=== PATIENT | female | born 1975 | race Two or more races ===

== ENCOUNTER 2025-01-02 07:14 | Emergency (ER) | payer OTHER, SELFPAY ==
--- OUTSIDE RECORDS SUMMARY | 2004-01-23 20:00 | XMS_ITS | Continuity of Care Document ---
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 Physics Professor Name Role Phone Bebe Pires MD Unavailable Unavailable Medications Medication Instructions Dosage Effective Dates (start - stop) Status Comments clotrimazole 1 % Vaginal Cream 1 APPLICATORFUL PV QD X 7 DAYS - Active Advance Directives Directive Yes / No Effective Date File Name No Information Encounters Encounter Description Practice Location Reason(s) For Visit Diagnoses Date Provider Providers Copied on Encounter zo [facility], [address] [place] [address],[address] [address], [place], [place], [id number], tel:[phone] Converted Locations No Information 4 Lexis Spence. [address] [place] [address], [id number] , [place]. tel:[phone] [facility], [address] [place] [address],Suite [facility], [place], [place], [id number], tel:[phone] [facility] Vaginitis and vulvovaginitis , unspecified 4 Z-Convert ed Provider. . [facility], [address] [place] [address],[address] [facility], [place], [place], [id number], [place] tel:[phone] [facility] Goiter, specified as simpleRoutine general medical examination at a health care facility 4 DOttavio Bebe. [address] [place] [address], [id number] , [place]. tel:[phone] Family History Family Member Type Diagnosis Age [...]
--- NOTE | ~2025-01-02 | XR_ITS ---
EXAMINATION: XR CHEST CLINICAL INFORMATION: upper resp coughing COMPARISON: None available. TECHNIQUE: AP view of the chest was obtained. FINDINGS: The cardiac, hilar, and mediastinal contours are normal. The lungs are mildly hyperaerated, however clear bilaterally. No pneumothorax or effusion. No focal osseous or soft tissue abnormality. XR/XR chest 1V IMPRESSION: Hyperaerated lungs. No active pulmonary disease. Electronically signed by: Thomas Cardenas MD 01/02/2025 08:16 AM EDT
[2025-01-02 07:16] VITALS: BP 131/72; PULSE 76; RESP 16; TEMP 36.5; O2SAT 98
--- NOTE | 2025-01-02 07:53 | ED_ITS ---
HPI - URI/Sore Throat General Chief Complaint: Upper Respiratory Symptoms Stated Complaint: Fever, coughing Time Seen by Provider: 01/02/25 07:39 Source: patient Mode of arrival: ambulatory Limitations: no limitations History of Present Illness ED Provider: DR. Reza HPI Narrative: 49-year-old female who is otherwise healthy came in for evaluation of 2 days of upper respiratory symptoms, runny nose, congestion, dry coughing, subjective fever, generalized body ache no exposure to sick contacts, no recent travel. No history of cigarette smoking. No history of pneumonia, remote history of asthma while she was child but patient grew out of. Related Data Previous Rx's ?Medication ?Instructions ?Recorded albuterol sulfate 90 mcg/actuation 2 inh inhalation Q4 -6H PRN 01/02/25 breath activated powder inhaler shortness of breath or wheezing #1 ea azithromycin 250 mg tablet See Rx Instructions PO .COM PLEX #6 01/02/25 (Zithromax Z-Romeo) tabs prednisone 20 mg tablet 20 mg PO BID #10 tabs Allergies Allergy/AdvReac Type Severity Reaction Status Date / Time ibuprofen Allergy Angioedema Verified 01/02/25 07:17 Review of Systems Review of Systems: All other systems are reviewed and are negative Constitutional: Reports as per HPI and Reports no additional constitutional complaints Eyes: Reports as per HPI and Reports no additional eye complaints Reports system reviewed and no additional complaints, except as documented Cardiovascular: Reports as per HPI and Reports no additional cardiovascular complaints Respiratory: Reports as per HPI and Reports no additional respiratory complaints Gastrointestinal: Reports as per HPI and Reports no additional gastrointestinal complaints Genitourinary: Reports no additional female genitourinary complaints Musculoskeletal: Reports no additional musculoskeletal complaints Skin/Breast: Reports system reviewed and no additional complaints, except as docu Psychiatric: Reports no additional psychiatric complaints Endocrine: Reports no additional endocrine complaints Hematologic/Lymphatic: Reports no additional hematologic/lymphatic complaints Allergic/Immunologic: Reports no additional allergic/immunologic complaints Reports system reviewed and no additional complaints, except as documented and Reports Abnormal speech present [facility] Social History Social History Advance Directives: No Advance Directives Information Provided: Yes Physical Exam Vital Signs: Vital Signs: Last Vital Signs Temp 97.7 F 01/02/25 07:16 Pulse 76 01/02/25 07:16 Resp 16 01/02/25 07:16 BP 131/72 01/02/25 07:16 Pulse Ox 98 01/02/25 07:16 O2 Del Method Room Air 01/02/25 07:16 BMI result Body Mass Index 20.0 Vital signs have been reviewed and appear to be correct. Blood pressure elevated. Heart rate normal. Respiratory rate normal. Temperature normal. Oxygen saturation normal. Appearance: Alert. Oriented X3. No acute distress. Head: Normal external exam. Normocephalic. Atraumatic. No Tellez signs noted. No raccoon eyes noted Eyes: PERRLA. EOMI. Conjunctiva and sclera normal. Eyelids normal. ENT: TM's Normal. Pharynx normal. Uvula midline. Moist mucous membranes. No trismus noted. No drooling noted. No muffled voice noted. Neck: Normal inspection. Neck supple. FROM. No adenopathy. Thyroid Normal. No meningeal signs. No neck mass noted. CVS: Normal heart rate and rhythm. Heart sound normal. No murmurs noted. Pulses normal throughout. Respiratory: No respiratory distress. Painless inspiration. Breath sounds normal. No wheezes/rales/rhonchi noted. Chest nontender. No accessory muscle usage noted or decreased air movement noted. Abdomen: Soft and nontender. Bowel sounds normal in all 4 quadrants. No distention noted. No organomegaly noted. No visible injury noted. Back: No CVA tenderness. Full range of motion noted. Skin: Skin warm and dry. Normal skin color. Normal skin turgor. No rashes/lesions/lacerations noted. Extremities: No lower extremity edema. Extremities exhibit normal range of motion. Extremities nontender. Neuro: Oriented X 3. Cranial nerve exam: II-XII are grossly intact No motor deficit. No sensory deficit. Reflexes normal. Course Reevaluation(s) Reevaluation #1: Upper respiratory infection/bronchitis start the patient on Z-Romeo/prednisone, bronchodilator. Time: 08:49 Medical Decision Making Differential Diagnosis Differential Diagnoses: The differential diagnosis associated with the presentation includes (Pneumonia, pneumothorax, pleural effusion, viral upper respiratory infection.) Admission/Observation Consideration of admission/observation: Escalation of care including admission/observation considered Lab Data MDM Lab Attestation statement: I reviewed the patient's lab results. Labs: Lab Results 01/02/25 Range/Units 07:28 COVID-19 (TARAH) Negative (Negative) COVID-19 Clin Com See Note Influenza Type A (UNA) Negative (Negative) Influenza Type B (UNA) Negative (Negative) Influenza A & B Note See Note S. pyogenes GrpA UNA Negative (Negative) Independent Interpretation I performed an independent interpretation of an: Plain X-Ray (Chest:Hyperaerated lungs. No active pulmonary disease.) Radiology Impression Discussion of test interpretation with radiology: I have reviewed the radiologist's reading. Discharge Plan Discharge Clinical Impression: Upper respiratory infection, Bronchitis Patient Disposition: Home, Self-Care Instructions: Acute Bronchitis (ED) Additional Instructions: Follow-up with the primary doctor within 2 days. Quarantine yourself until he became asymptomatic, keep social distance between you and others, frequent hand wash, wear the face mask at times. Prescriptions: New azithromycin [Zithromax Z-Romeo] 250 mg tablet See Rx Instructions .ROUTE .COMPLEX Qty: 6 0RF Rx Instructions: For 250 mg dose pack: take 500 mg today (day 1), then 250 mg for 4 days (days 2-5) albuterol sulfate 90 mcg/actuation aerosol powdr breath activated 2 inh inhalation Q4-6H PRN (Reason: shortness of breath or wheezing) Qty: 1 0RF prednisone 20 mg tablet 20 mg PO BID Qty: 10 0RF Print Language: Czech
[2025-01-02 08:00] LABS: IDNOW Serial# 16C4AD1C; Strep A Nucleic Acid Negative (Negative)
--- OUTSIDE RECORDS SUMMARY | 2025-01-02 08:01 | XMS_ITS | Clinical Summary ---
Author Organization [facility] Address [address] [place] [address] Care Team Providers Care Manager Strategic Partnerships Name Role Phone Mony Moore DO Primary Care Provider [phone] Social History Tobacco Use Types Packs/Day Years Used Date Smoking Tobacco: Never Assessed Comments Unknown Sex and Gender Information Value Date Recorded Sex Assigned at Not on file Legal Sex Female 4:27 PM EDT Gender Identity Not on file Sexual Orientation Not on file Plan of Treatment Health Maintenance Due Date Last Done Comments Hepatitis C Screening 1976 Pap Smear 1992 DTaP/Tdap/Td (1 - Tdap) 1994 Hep B (1 of 3 - 19+ 3-dose series) 09/15/1995 Mammogram/Breast Imaging 2016 COVID-19 Vaccine (2023-2 5 season) 2024 Influenza (#1) 2024 Zoster (Shingrix) (1 of 2) 2026 HPV Vaccine (No Doses Required) Completed Hep A Aged Out No longer eligi ble based on patient's age to complete this topic Hib Aged Out No longer eligi ble based on patient's age to complete this topic Meningococcal ACWY Aged Out No longer eligible based on patient's age to complete this topic Pneumococcal Aged Out No longer eligi ble based on patient's age to complete this topic Insurance [facility] (NETWORK/MH-OUT OF NETWORK) Care Teams Manager Strategic Partnerships Relationship Specialty Start Date End Date Mony Moore DO [facility], [address] [place] [id number] PCP - General Family Medicine 04/11/20
--- OUTSIDE RECORDS SUMMARY | 2025-01-02 08:01 | XMS_ITS | Clinical Summary ---
Author Organization 175 [facility] Address [address] [place] [address] Phone Care Team Providers Care Policy Issue Clerk Name Role Phone Physician, Pcp Unknown Primary Care Provider Bernie vailable Allergies Active Allergy Reactions Criticality Noted Date Comments Ibuprofen 10/22/2024 Pollen Extracts 10/22/2024 Medications multivitamin tablet Take 1 tablet by mouth 1 (one) time each day. Active cholecalciferol (VITAMIN D3) 10 mcg/mL (400 unit/mL) liquid Take by mouth 1 (one) time each day. Active SUMAtriptan (IMITREX) 50 mg tablet Take 1 tablet (50 mg total) by mouth 1 (one) time if needed for migraine (may repeat x1). May repeat dose once in 2 hours if no relief. Do not exceed 2 doses in 24 hours. 9 tablet 5 Active amitriptyline (ELAVIL) 25 mg tablet TOME 1 TABLETA POR VIA ORAL TODOS [place] AL ACOSTARSE 90 tablet 1 5 Active Encounters Date Type Department Care Team Description 11/05/2024 3:56 PM EDT - 11/05/2024 11:59 PM EDT Hospital Encounter [facility] MRI [address] [place] [address] Migraine without aura and without status migrainosus, not intractable Discharge Disposition: Home or Self Care 10/22/2024 2:00 PM EDT Consult [facility] [address] [place] [address] Olga Adamson MD Migraine without aura and without status migrainosus, not intractable (Primary Dx); Other fatigue from Last 3 Months Social History Tobacco Use Types Packs/Day Years Used Date Smoking Tobacco: Never Assessed Comments Unknown Sex and Gender Information Value Date Recorded Sex Assigned at Female 11/01/2024 10:24 PM EDT Legal Sex Female 11:31 AM EDT Gender Identity Not on file Sexual Orientation Not on file Last Filed Vital Signs Vital Sign Reading Time Taken Comments Blood Pressure 115/73 10/22/2024 2:14 PM EDT Pulse 72 10/22/2024 2:14 PM EDT Temperature 36.5 C (97.7 F) 10/22/2024 2:14 PM EDT Respiratory Rate - - Oxygen Saturation 96% 10/22/2024 2:14 PM EDT Inhaled Oxygen Concentration - - Weight 56.7 kg (125 lb) 10/22/2024 2:14 PM EDT Height 162.6 cm (5' 4 ) 10/22/2024 2:14 PM EDT Body Mass Index 21.46 10/22/2024 2:14 PM EDT Plan of Treatment Upcoming Encounters Date Type Department Care Team (Late st Contact Info) Description 01/22/2025 4:30 PM EDT Office Visit [facility] [address] [place] [address] Della Cardenas, ISAC [address] [place] [address] Health Maintenance Due Date Last Done Comments Breast Cancer Screening 1976 DTaP,Tdap,and Td Vaccines (1 - Tdap) 09/15/1995 Hepatitis B Vaccines (1 of 3 - 19+ 3-dose series) 09/15/1995 Cervical Cancer Screening: P ap Smear 1997 Depression Screening 04/11/2024 Colorectal Cancer Screening: Colonoscopy 08/02/2024 HIV Screening 08/02/2024 Hepatitis C Screening 08/02/2024 Social Influencers of Health Screening 08/02/2024 COVID-19 Vaccine ( - 2023-2 5 season) 2024 Influenza Vaccine (#1) 2024 RSV Immunization Adult Patie nts (1 - 1-dose 75+ series) 09/15/2051 HIB Vaccines Aged Out No longer eligi ble based on patient's age to complete this topic HPV Vaccines Aged Out No longer eligi ble based on patient's age to complete this topic Hepatitis A Vaccines Aged Out No long er eligible based on patient's age to complete this topic IPV Vaccines Aged Out No longer eligi ble based on patient's age to complete this topic MMR Vaccines Aged Out No longer eligi ble based on patient's age to complete this topic Meningococcal ACWY Vaccine Aged Out N o longer eligible based on patient's age to complete this topic Meningococcal B Vaccine Aged Out No l onger eligible based on patient's age to complete this topic Pneumococcal Vaccine: Pediat rics (0 to 5 Years) and At-Risk Patients (6 to 49 Years) Aged Out No longer eligible b ased on patient's age to complete this topic RSV Immunization Patients Un rach 20 months Aged Out No longer eligible b ased on patient's age to complete this topic Varicella Vaccines Aged Out No longer eligible based on patient's age to complete this topic Procedures Procedure Name Priority Date/Time Associated Diagnosis Comments MR BRAIN WO AND W CONTRAST Routine 11/05/2024 5:10 PM EDT Migraine without aura and without status migrainosus, not intractable CBC WITH AUTO DIFFERENTIAL Routine 10/22/2024 2:59 PM EDT Migraine without aura and without status migrainosus, not intractable THYROID STIMULATING HORMONE WITH REFLEX TO FREE T4 AND FREE T3 Routine 10/22/2024 2:59 PM EDT Migraine without aura and without status migrainosus, not intractable Other fatigue HEPATIC FUNCTION PANEL Routine 10/22/2024 2:59 PM EDT Migraine without aura and without status migrainosus, not intractable CBC AND DIFFERENTIAL Routine 10/22/2024 2:59 PM EDT Migraine without aura and without status migrainosus, not intractable BORRELIA BURGDORFERI ANTIBODY Routine 10/22/2024 2:59 PM EDT Migraine without aura and without status migrainosus, not intractable BUN Routine 10/22/2024 2:59 PM EDT Migraine without aura and without status migrainosus, not intractable CREATININE, SERUM Routine 10/22/2024 2:5 9 PM EDT Migraine without aura and without status migrainosus, not intractable VITAMIN D 25 HYDROXY Routine 10/22/2024 2:59 PM EDT Migraine without aura and without status migrainosus, not intractable VITAMIN B12 Routine 10/22/2024 2:59 PM EDT Migraine without aura and without status migrainosus, not intractable from Last 3 Months Results * MR Brain wo and w Contrast (11/05/2024 5:10 PM EDT) Anatomical Region Laterality Modality Head and Neck Magnetic Resonan ce 11/06/2024 5:53 PM EDT Impressions 11/06/2024 5:56 PM EDT Normal brain MRI without and with contrast -------- FINAL REPORT -------- Dictated By: JULIETH HILARIO Dictated Date: 11/06/2024 17:53 ET Assigned Physician: JULIETH HILARIO Reviewed and Electronically Signed By: JULIETH HILARIO Signed Date: 11/06/2024 17:56 ET Workstation ID: [id number] Transcribed By: Self Edit Transcribed Date: 11/06/2024 17:53 ET Narrative 11/06/2024 5:56 PM EDT PROCEDURE: Brain MRI INDICATION: Headache TECHNIQUE: Multiplanar, multisequence MRI of the brain without and with contrast. 11 mL Dotarem injected intravenously without complication from a 15 mL vial with the remainder discarded. COMPARISON: No priors available. FINDINGS: No acute infarct, mass effect, or intracranial hemorrhage. Brain parenchyma is normal in signal. No abnormal intracranial enhancement or susceptibility artifact. Sella and foramen magnum are normal. Pituitary gland is within normal limits. Ventricles, sulci, and cisterns are normal in size and configuration. No hydrocephalus. Major intracranial arterial flow voids are normal. Major dural venous sinuses enhance normally with contrast. Sinuses and mastoid air cells are clear. Orbits and extracranial soft tissues are normal. Calvarium is normal. Procedure Note Julieth Hilario MD - 11/06/2024 PROCEDURE: Brain MRI INDICATION: Headache TECHNIQUE: Multiplanar, multisequence MRI of the brain without and withcontrast. 11 mL Dotarem injected intravenously without complication froma 15 mL vial with the remainder discarded. COMPARISON: No priors available. FINDINGS: No acute infarct, mass effect, or intracranial hemorrhage. Brain parenchyma is normal in signal. No abnormal intracranial enhancement or susceptibility artifact. Sella and foramen magnum are normal. Pituitary gland is within normallimits. Ventricles, sulci, and cisterns are normal in size and configuration. Nohydrocephalus. Major intracranial arterial flow voids are normal. Major dural venoussinuses enhance normally with contrast. Sinuses and mastoid air cells are clear. Orbits and extracranial soft tissues are normal. Calvarium is normal. IMPRESSION: Normal brain MRI without and with contrast -------- FINAL REPORT -------- Dictated By: JULIETH HILARIO Dictated Date: 11/06/2024 17:53 ET Assigned Physician: JULIETH HILARIO Reviewed and Electronically Signed By: JULIETH HILARIO Signed Date: 11/06/2024 17:56 ET Workstation ID: [id number] Transcribed By: Self Edit Transcribed Date: 11/06/2024 17:53 ET us Olga Adamson MD [facility] MRI PROCEDURES Final Result * Thyroid stimulating hormone with reflex to free t4 and free t3 (10/22/2024 2:59 PM EDT) TSH 0.58 0.40 - 4.00 mcIU/mL LAB CHEMISTRY METHOD 10/22/2024 7:22 PM EDT [facility] Blood Venous blood specimen / Unknown Venipuncture / Unknown 10/22/2024 2:59 PM EDT 10/22/2024 2:59 PM EDT us Olga Adamson MD LAB BLOOD ORDERABLES Fin al Result [facility] [address] [place] [address], * CBC auto differential (10/22/2024 2:59 PM EDT) WBC 6.2 4.8 - 10.8 K/mcL LAB HEMETOLOGY METHOD 10/22/2024 6:20 PM EDT [facility] RBC 4.10 3.80 - 4.80 M/mcL LAB HEMETOLOGY METHOD 10/22/2024 6:20 PM EDT [facility] Hemoglobin 12.8 11.5 - 16.0 g/dL LAB HEMETOLOGY METHOD 10/22/2024 6:20 PM EDT [facility] Hematocrit 39.8 35.0 - 47.0 % LAB HEMETOLOGY METHOD 10/22/2024 6:20 PM EDT [facility] MCV 96.4 79.0 - 98.0 FL LAB HEMETOLOGY METHOD 10/22/2024 6:20 PM EDT [facility] MCH 31.0 27.0 - 32.0 pcg LAB HEMETOLOGY METHOD 10/22/2024 6:20 PM EDT [facility] MCHC 32.2 32.0 - 37.0 g/dL LAB HEMETOLOGY METHOD 10/22/2024 6:20 PM EDT [facility] RDW 12.1 11.0 - 15.0 % LAB HEMETOLOGY METHOD 10/22/2024 6:20 PM EDT [facility] Platelets 333 130 - 400 K/mcL LAB HEMETOLOGY METHOD 10/22/2024 6:20 PM EDT [facility] MPV 10.4 7.0 - 11.0 FL LAB HEMETOLOGY METHOD 10/22/2024 6:20 PM EDT [facility] NRBC 0.0 <1.0 % LAB HEMETOLOGY METHOD 10/22/2024 6:20 PM EDT [facility] NRBC Absolute 0.00 <0.10 K/mcL LAB HEMETOLOGY METHOD 10/22/2024 6:20 PM EDT [facility] Neutrophils Relative 42.1 % LAB HEMETOLOGY METHOD 10/22/2024 6:20 PM EDT [facility] Lymphocytes Relative 45.3 % LAB HEMETOLOGY METHOD 10/22/2024 6:20 PM EDT [facility] Monocytes Relative 8.2 % LAB HEMETOLOGY METHOD 10/22/2024 6:20 PM EDT [facility] Eosinophils Relative 3.2 % LAB HEMETOLOGY METHOD 10/22/2024 6:20 PM EDT [facility] Basophils Relative 1.0 % LAB HEMETOLOGY METHOD 10/22/2024 6:20 PM EDT [facility] Immature Granulocytes Relative 0.2 % LAB HEMETOLOGY METHOD 10/22/2024 6:20 PM EDT [facility] Neutrophils Absolute 2.63 1.50 - 7.00 K/mcL LAB HEMETOLOGY METHOD 10/22/2024 6:20 PM EDT [facility] Lymphocytes Absolute 2.82 1.00 - 5.00 K/mcL LAB HEMETOLOGY METHOD 10/22/2024 6:20 PM EDT [facility] Monocytes Absolute 0.51 0.20 - 1.00 K/mcL LAB HEMETOLOGY METHOD 10/22/2024 6:20 PM EDT [facility] Eosinophils Absolute 0.20 0.00 - 0.50 K/mcL LAB HEMETOLOGY METHOD 10/22/2024 6:20 PM EDT [facility] Basophils Absolute 0.06 0.00 - 0.20 K/mcL LAB HEMETOLOGY METHOD 10/22/2024 6:20 PM EDT [facility] Immature Granulocytes Absolute 0.01 0.00 - 0.03 K/mcL LAB HEMETOLOGY METHOD 10/22/2024 6:20 PM EDT [facility] Blood Venous blood specimen / Unknown Venipuncture / Unknown 10/22/2024 2:59 PM EDT 10/22/2024 2:59 PM EDT us Olga Adamson MD LAB BLOOD ORDERABLES Fin al Result Performing Organization Address [facility] de Phone Number [facility] [address] [place] [address], * Borrelia burgdorferi antibody (10/22/2024 2:59 PM EDT) [facility] Lyme Ab Negative Negative LAB CHEMISTRY METHOD 10/23/2024 10:02 AM EDT [facility] Comment: No laboratory evidence of infection with B. burgdorferi (Lyme disease). Negative results may occur in patients recently infected (<=14 days) with B. burgdorferi. If recent infection is suspected, repeat testing on a new sample collected in 7- 14 days is recommended. Blood Venous blood specimen / Unknown Venipuncture / Unknown 10/22/2024 2:59 PM EDT 10/22/2024 2:59 PM EDT us Olga Adamson MD LAB BLOOD ORDERABLES Fin al Result Performing Organization Address [facility]/ZIP Co de Phone Number [facility] [address] [place] [address], [place] [phone] * Creatinine (10/22/2024 2:59 PM EDT) [facility] Creatinine 0.70 0.50 - 1.10 mg/dL LAB CHEMISTRY METHOD 10/22/2024 6:47 PM EDT [facility] eGFR 107 >=60 mL/min/1. 73m2 LAB CHEMISTRY METHOD 10/22/2024 6:47 PM EDT [facility] Comment:Calculation based on the Chronic Kidney Disease Epidemiology Collaboration (CKD-EPI) equation refit without adjustment for race. Blood Venous blood specimen / Unknown Venipuncture / Unknown 10/22/2024 2:59 PM EDT 10/22/2024 2:59 PM EDT us Olga Adamson MD LAB BLOOD ORDERABLES Fin al Result Performing Organization Address [facility]/ZIP Co de Phone Number [facility] [address] [place] [address], [place] [phone] * Vitamin D 25 hydroxy (10/22/2024 2:59 PM EDT) Vit D, 25-Hydroxy 57.3 30.0 - 80.0 ng/mL LAB CHEMISTRY METHOD 10/22/2024 7:22 PM EDT [facility] Blood Venous blood specimen / Unknown Venipuncture / Unknown 10/22/2024 2:59 PM EDT 10/22/2024 2:59 PM EDT us Olga Adamson MD LAB BLOOD ORDERABLES Fin al Result Performing Organization Address [facility]/ZIP Co de Phone Number [facility] [address] [place] [address], [place] [phone] * BUN (10/22/2024 2:59 PM EDT) BUN 12 5 - 25 mg/dL LAB CHEMISTRY METHOD 10/22/2024 7:14 PM EDT [facility] Blood Venous blood specimen / Unknown Venipuncture / Unknown 10/22/2024 2:59 PM EDT 10/22/2024 2:59 PM EDT us Olga Adamson MD LAB BLOOD ORDERABLES Fin al Result Performing Organization Address [facility]/ZIP Co de Phone Number [facility] [address] [place] [address], * Vitamin B12 (10/22/2024 2:59 PM EDT) [facility] Vitamin B-12 710 250 - 900 pcg/mL LAB CHEMISTRY METHOD 10/22/2024 7:14 PM EDT [facility] Blood Venous blood specimen / Unknown Venipuncture / Unknown 10/22/2024 2:59 PM EDT 10/22/2024 2:59 PM EDT Olga Adamson MD LAB BLOOD ORDERABLES Fin al Result Performing Organization Address [facility]/ZIP Co de Phone Number [facility] [address] [place] [address], * Hepatic function panel (10/22/2024 2:59 PM EDT) [facility] Total Protein 7.2 6.0 - 8.0 g/dL LAB CHEMISTRY METHOD 10/22/2024 7:14 PM EDT [facility] Albumin 3.7 3.2 - 5.0 g/dL LAB CHEMISTRY METHOD 10/22/2024 7:14 PM EDT [facility] Total Bilirubin 0.4 0.0 - 1.4 mg/dL LAB CHEMISTRY METHOD 10/22/2024 7:14 PM EDT [facility] Bilirubin, Direct <0.1 0.0 - 0.3 mg/dL LAB CHEMISTRY METHOD 10/22/2024 7:14 PM EDT [facility] Bilirubin, Indirect LAB CHEMISTRY METHOD 10/22/2024 7:14 PM EDT [facility] Comment:Unable to calculate Indirect Bilirubin. ALT (SGPT) 29 10 - 60 unit/L LAB CHEMISTRY METHOD 10/22/2024 7:14 PM EDT [facility] AST (SGOT) 20 10 - 42 unit/L LAB CHEMISTRY METHOD 10/22/2024 7:14 PM EDT [facility] Alkaline Phosphatase 105 42 - 121 unit/L LAB CHEMISTRY METHOD 10/22/2024 7:14 PM EDT [facility] Blood Venous blood specimen / Unknown Venipuncture / Unknown 10/22/2024 2:59 PM EDT 10/22/2024 2:59 PM EDT us Olga Adamson MD LAB BLOOD ORDERABLES Fin al Result [facility] [address] [place] [address], [place] [phone] from Last 3 Months Insurance [id number] Care Teams Policy Issue Clerk Relationship Specialty Start Date End Date Physician, Pcp Unknown PCP - General 10/22/24
[2025-01-02 08:07] LABS: COVID-19 Test Negative (Negative); IDNOW Serial# 6674DD1D
[2025-01-02 08:08] LABS: IDNOW Serial# 08D9AD1C; Influenza B2 Negative (Negative)
[2025-01-02 09:03] VITALS: BP 131/72; PULSE 76; RESP 16; TEMP 36.5; O2SAT 98
== END 2025-01-02 09:04 | disposition home or self-care (01) ==
PROVIDERS: Emergency Provider Emergency Medicine
DX: J06.9 Acute upper respiratory infection, unspecified (principal); J40 Bronchitis, not specified as acute or chronic; R50.9 Fever, unspecified; R05.9 Cough, unspecified; M79.10 Myalgia, unspecified site; Z11.52 Encounter for screening for COVID-19; Z79.899 Other long term (current) drug therapy
CPT/HCPCS: 71045; 87502; 87635; 87651; 99282; 99283

== ENCOUNTER → 2025-01-02 08:05 | Outpatient (BNV) | payer OTHER, SELFPAY | PROVIDERS: Emergency Provider Emergency Medicine; Visit Provider Radiology Diagnostic Radiology | DX: J98.4 Other disorders of lung (principal) | CPT/HCPCS: 71045 ==

== ENCOUNTER 2025-01-24 16:10 | Outpatient (AMB) | payer OTHER, SELFPAY ==
--- OUTSIDE RECORDS SUMMARY | 2004-01-23 20:00 | XMS_ITS | Continuity of Care Document ---
Author Organization [facility] Address [address] [address],[address] [place] [address] Phone Care Team Providers Care Link Cutter Name Role Phone Bebe Pires MD Unavailable Unavailable Medications Medication Instructions Dosage Effective Dates (start - stop) Status Comments clotrimazole 1 % Vaginal Cream 1 APPLICATORFUL PV QD X 7 DAYS - Active Advance Directives Directive Yes / No Effective Date File Name No Information Encounters Encounter Description Practice Location Reason(s) For Visit Diagnoses Date Provider Providers Copied on Encounter zo [facility], [address] [place] [address],[address] [address], [place], [place], [id number], tel:[phone] Converted Locations No Information 4 Lexis Spence. [address] [place] [address], [id number] , [place]. tel:[phone] [facility], [address] [place] [address],Suite [facility], [place], [place], [id number], tel:[phone] [facility] Vaginitis and vulvovaginitis , unspecified 4 Z-Convert ed Provider. . [facility], [address] [place] [address],Suite [facility], [place], [place], [id number], [place] tel:[phone] 22 [facility] Goiter, specified as simpleRoutine general medical examination at a health care facility 4 DOttavio Bebe. [address] [place] [address], [id number] , [place]. tel:[phone] Family History Family Member Type Diagnosis Age [...]
--- OUTSIDE RECORDS SUMMARY | 2025-01-22 16:30 | XMS_ITS | Encounter Summary ---
Author Organization [facility] Address [address] [place] [address] Care Team Providers Care Insurance Rater Name Role Phone Physician, Pcp Unknown Primary Care Provider Bernie vailable Encounter Details Date Type Department Care Team ([facility] st Contact Info) Description 01/22/2025 4:30 PM EDT Office Visit [facility] [address] [place] [id number] Della Cardenas PA [address] [place] [address] Social History Tobacco Use Types Packs/Day Years Used Date Smoking Tobacco: Never Assessed Comments Unknown Sex and Gender Information Value Date Recorded Sex Assigned at Female 11/01/2024 10:24 PM EDT Legal Sex Female 11:31 AM EDT Gender Identity Not on file Sexual Orientation Not on file documented as of this encounter Last Filed Vital Signs Vital Sign Reading Time Taken Comments Blood Pressure 112/73 01/22/2025 4:23 PM EDT Pulse 92 01/22/2025 4:23 PM EDT Temperature - - Respiratory Rate - - Oxygen Saturation 98% 01/22/2025 4:23 PM EDT Inhaled Oxygen Concentration - - Weight 56.7 kg (125 lb) 01/22/2025 4:23 PM EDT Height - - Body Mass Index 21.46 10/22/2024 2:14 PM EDT documented in this encounter Ordered Prescriptions Prescription Sig Dispense Quantity Refills Last Filled Start Date End Date magnesium oxide (MAG-OX) 400 mg magnesium tablet Take 1 tablet (400 mg total) by mouth 1 (one) time each day. 30 tablet 5 01/22/2025 riboflavin (VITAMIN B2) 400 mg tablet Take 1 tablet (400 mg total) by mouth 1 (one) time each day. 30 tablet 5 01/22/2025 documented in this encounter Plan of Treatment Upcoming Encounters Date Type Department Care Team (Late st Contact Info) Description 07/22/2025 4:00 PM EDT Office Visit [facility] [address] [place] [address] Olga Adamson MD [address] [place] [address] documented as of this encounter Visit Diagnoses Not on filedocumented in this encounter Historical Medications * This list may reflect changes made after this encounter. albuterol HFA (PROAIR HFA ; PROVENTIL HFA ; VENTOLIN HFA) 90 mcg/actuation inhaler Inhale 2 puffs by mouth if needed. 01/04/2025 added in this encounter Care Teams Insurance Rater Relationship Specialty Start Date End Date Physician, Pcp Unknown PCP - General 10/22/24 documented as of this encounter
--- NOTE | 2025-01-24 16:14 | MHC.PC.OV ---
Vital Signs 01/24/25 16:20 Height 5 ft 3.39 in Weight 131 lb 2 oz BMI 22.9 BP 131/79 Blood Pressure Location Lt brachial Position Sitting Respiration 16 Pulse 89 Pulse Source Pulse Oximeter Temp 98.2 F Temp Source Oral Pulse Oximetry (%) 95 Oxygen Delivery Method Room Air Intake Visit Reasons: NEW PATIENT- Formerly [facility] Care Paper Inserter Required: No Accompanied by: Self / Same As Patient Allergies ibuprofen Allergy (Verified 01/24/25 16:15) Angioedema Tobacco use date assessed: 01/24/25 Dental Screening Dental Screen Date: 01/24/25 Did you have a dental visit in the last 12 months?: Yes Did you have a dental problem in the last 6 months where you did not have access to dental care?: No Was dental information given to patient?: Patient has dentist HPI HPI Comments History of Present Illness Details Consent Patient was informed and verbally consented to the use of an ambient scribe for clinic note documentation during this visit. History of Present Illness The patient is a 49-year-old female presenting with upper respiratory symptoms and persistent cough. Upper Respiratory Infection: The patient experienced two days of upper respiratory symptoms including rhinorrhea, nasal congestion, dry cough, subjective fever, and generalized myalgia. She reported no exposure to sick contacts or recent travel history. The patient was diagnosed with an upper respiratory infection during an emergency department visit and was prescribed azithromycin, prednisone, and a bronchodilator. Bronchitis: During the emergency department visit, the patient was also diagnosed with bronchitis, presenting with symptoms of a persistent dry cough and congestion. She has been on a treatment regimen including azithromycin, prednisone, and a bronchodilator. The patient reports persistent coughing, particularly at night, which has been ongoing since the initial symptoms began. Mild Persistent Asthma: The patient has a history of asthma from childhood, which was considered resolved. She experiences occasional coughing and chest pain, notably exacerbated at night. The patient uses albuterol as needed, though no recent exacerbations prompted increased use. The discussion revealed that the asthma may reactivate, influenced by environmental triggers such as allergens or seasonal changes. Menstrual Irregularity: The patient reports irregular menstruation with her last periods occurring in April and September of this year. She noted heavy bleeding on occasion, with this pattern persisting for approximately three years. She denies further concerns regarding her menstrual cycles and reports no significant related symptoms such as fatigue aside from occasional tiredness. Surgical History: - The patient has no history of prior surgeries. Medications: - Azithromycin (Z-Romeo) for upper respiratory infection - Prednisone for bronchitis - Bronchodilator for bronchitis - Albuterol as a rescue inhaler - Fluticasone for nasal congestion Social History: - Denies history of cigarette smoking - Reports that she does not consume alcohol - Engages in no illicit drug use - Is sexually active Review of Systems - Respiratory: Reports persistent rhinorrhea, nasal congestion, dry cough. - Cardiovascular: Reports chest pain associated with coughing. - Reproductive: Reports irregular menstruation with heavy periods at times. 10-point ROS reviewed and negative except as noted in HPI Past Medical History - Past history of asthma in childhood Health Maintenance - Patient has completed cervical cancer screening and mammography within the last year with normal results. - Denies previous colonoscopy; discussed Cologuard as an alternative. Physical Exam General: Well-appearing, in no acute distress. Vital signs: Within normal limits. HEENT: Normocephalic, atraumatic. PERRLA, EOMI. Conjunctiva clear, sclera anicteric. Oropharynx clear, mucous membranes moist. TMs intact bilaterally. Congested nose, more at night than during the day. Neck: Supple, no lymphadenopathy, no thyromegaly, no JVD or carotid bruits. Cardiovascular: RRR, normal S1/S2, no murmurs, rubs, or gallops. Peripheral pulses 2+ and symmetric. No edema. Respiratory: Lungs clear to auscultation bilaterally, no wheezes, rales, or rhonchi. Normal effort. Patient reports persistent cough, especially at night, and occasional chest pain. Abdomen: Soft, non-tender, non-distended. Normoactive bowel sounds. No hepatosplenomegaly, no masses. MSK: Full range of motion, no joint swelling or deformity. Normal gait. Skin: Warm, dry, intact. No rashes, lesions, or pallor. Neuro: Alert and oriented x3. Cranial nerves II-XII intact. Strength 5/5 throughout. Sensation intact. Reflexes 2+ symmetric. Normal coordination and gait. Psych: Appropriate mood and affect. Normal judgment and insight. Reports occasional tiredness during the day and snoring at night. Plan 1. Upper Respiratory Infection - status post antibiotic and steroid p.o. patient responded well 2. Bronchitis - same as above 3. Mild Persistent Asthma - Initiate inhaled corticosteroid (fluticasone) as maintenance therapy. -use fluticasone nasal spray for postnasal drip - Continue using albuterol as a rescue inhaler for acute symptoms. - Educate patient on asthma triggers and management plan. 4. Menstrual Irregularity - Monitor menstrual cycle and symptomatic patterns. - Discuss further gynecological evaluation if irregularities persist or worsen. Discussion Notes I discussed the management of upper respiratory infection and bronchitis, emphasizing the continuation of prescribed medications and monitoring for symptom improvement. I advised the patient on asthma management, including maintenance inhaler use and identification of potential asthma triggers. Additionally, I reviewed her respiratory and other symptoms, while considering her menstrual irregularities, advising ongoing monitoring and further evaluation if needed. We discussed various health maintenance measures, including the option of a Cologuard test for colorectal cancer screening, given her history of lacking a colonoscopy. Patient Instructions - Continue taking all prescribed medications as directed. - Use the albuterol inhaler for any acute respiratory symptoms. - Monitor and log menstrual cycles, noting any significant changes. - Look out for worsening symptoms or lack of improvement and notify the clinic if needed. - Return for follow-up in two weeks for evaluation of overall progress. Medical Decision Making The decision to continue current medication for the respiratory conditions was influenced by the initial response and the established treatment efficacy. The initiation of a maintenance inhaler was based on the recurrent nature of asthma symptoms and preventative needs, aiming to improve respiratory status and manage asthma triggers. Menstrual irregularities were acknowledged, with a plan to observe and reassess the symptom trajectory if abnormal patterns persist. Diagnostic evaluation methods were discussed, offering non-invasive options, like Cologuard, to the patient to address the overdue screening without requiring immediate invasive procedures, aligning with best practice preventative care recommendations. Total time spent caring for the patient today was 30 minutes. This includes time spent before the visit reviewing the chart, time spent documenting, and time spent reviewing laboratory results, diagnostic imaging, medications, performing a medically necessary evaluation, counseling on diagnoses, care coordination. [facility] Medical History (Updated 01/24/25 @ 16:40 by Rey Singh MD) Mild persistent asthma Family History (Updated 01/24/25 @ 16:24 by Jaquan Tiwari MA) Father Diabetes High blood pressure Mother High blood pressure Social History Housing: House Patient Tobacco Use Status: Never used Tobacco service: No Current occupational status: employed Cognitive needs: No Hearing needs: No Vision needs: Yes (rx glasses) Questionnaire PHQ-9 Over the last 2 weeks, how often have you been bothered by any of the following problems? 1. Little interest or pleasure in doing things: not at all 2. Feeling down, depressed, or hopeless: not at all 3. Trouble falling or staying asleep, or sleeping too much: not at all 4. Feeling tired or having little energy: several days 5. Poor appetite or overeating: not at all 6. Feeling bad about yourself - or that you are a failure or have let yourself or your family down: not at all 7. Trouble concentrating on things, such as reading the newspaper or watching television: not at all 8. Moving or speaking so slowly that other people could have noticed. Or the opposite - being so fidgety or restless that you have been moving around a lot more than usual: not at all 9. Thoughts that you would be better off or of hurting yourself in some way: not at all Total score: 1 Source: Developed by Drs. Dylon Baron, Annie Regan, Forrest Diaz and colleagues, with an educational kevin from [employer]. Thrive Questionnaire Date Thrive assessed: 01/24/25 I am a: Patient What is your living situation today?: I have a steady place to live Within the past 12 months, did the food you bought not last and you didn't have the money to get more?: Never true Within the past 12 months, did you worry whether your food would run out before you got money to buy more?: Never true Do you have trouble paying for medicines?: I choose not to answer this question Do you have trouble getting transportation to medical appointments?: No Do you have trouble paying your heating and electricity bill?: No Do you have trouble taking care of your child, family member or friend?: No Are you currently unemployed and looking for a job?: No Are you interested in more education?: Yes Please select the resources that you would like help with: None Currently or been in a relationship where the following occur: No concerns reported THRIVE Score: 0 AUDIT C Alcohol Use Questionnaire (AUDIT-C) 1. How often do you have a drink containing alcohol?: Never Total Score: 0 JOSE-7 AMB Questionnaire JOSE-7 Date JOSE - 7 assessed: 01/24/25 Feeling nervous, anxious, or on edge: 0 = Not at all Not being able to stop or control worryin = Not at all Worrying too much about different things: 0 = Not at all Trouble relaxin = Not at all Being so restless that it is hard to sit still: 0 = Not at all Becoming easily annoyed or irritable: 0 = Not at all Feeling afraid as if something awful might happen: 0 = Not at all Total JOSE-7 score (0-4 normal; 5-9 mild; 10-14 moderate; 15-21 severe): 0 Source: Developed by Drs. Dylon Baron, Annie Regan, Forrest Diaz and colleagues, with an educational kevin from [employer]. Physical exam (Primary Care) Vital Signs: Last Vital Signs Temp 98.2 F 01/24/25 16:20 Pulse 89 01/24/25 16:20 Resp 16 01/24/25 16:20 BP 131/79 01/24/25 16:20 Pulse Ox 95 01/24/25 16:20 Oxygen Delivery Method Room Air 01/24/25 16:20 BMI result Body Mass Index 22.9 Tobacco/Smoking Status: Tobacco use Status Tobacco use date assessed 01/24/25 01/24/25 16:19 Patient Tobacco Use Status Never used Tobacco 01/24/25 16:19 PHQ-9: PHQ-9 Score PHQ-9: Total score 1 01/24/25 16:19 Thrive Assessment: Date of Thrive Assessment Date Thrive assessed 01/24/25 01/24/25 16:19 Currently or been in a relationship where the following occur: No concerns reported Coding Level of Care Code New Pt Level 4 (45199) Diagnoses Mild persistent asthma J45.30 Upper respiratory infection J06.9 Bronchitis J40 Menstrual irregularity N92.6 Assessment & Plan Assessment & Plan (1) Mild persistent asthma: Code(s): J45.30 - Mild persistent asthma, uncomplicated Category: Medical (2) Upper respiratory infection: Code(s): J06.9 - Acute upper respiratory infection, unspecified (3) Bronchitis: Code(s): J40 - Bronchitis, not specified as acute or chronic (4) Menstrual irregularity: Code(s): N92.6 - Irregular menstruation, unspecified Plan Orders: Orders Hepatitis B Surface Antigen Today Z13.9 - Encounter for screening, unspecified Hepatitis C Antibody Today Z13.9 - Encounter for screening, unspecified Vitamin B12 and Folate Today Z13.9 - Encounter for screening, unspecified Vitamin D 1,25 dihydroxy Today Z13.9 - Encounter for screening, unspecified HIV Ab/Ag Today Z13.9 - Encounter for screening, unspecified Complete Blood Count Auto Diff Today Z13.9 - Encounter for screening, unspecified Comprehensive Met. Panel Today Z13.9 - Encounter for screening, unspecified CT NG by PCR Urine Today Z13.9 - Encounter for screening, unspecified Hemoglobin A1c Today Z13.9 - Encounter for screening, unspecified Hepatitis B Surface Antibody Today Z13.9 - Encounter for screening, unspecified Lipid Panel Today Z13.9 - Encounter for screening, unspecified Other Ref Test - Misc Today Z13.9 - Encounter for screening, unspecified UA CC w/rflx Micro + Cult Today Z13.9 - Encounter for screening, unspecified Referrals Cologuard Test Z12.11 - Encounter for screening for malignant neoplasm of colon, Z12.12 - Encounter for screening for malignant neoplasm of rectum Medications: New cetirizine 10 mg PO DAILY PRN 30 tabs 0RF allergy symptoms fluticasone propionate 50 mcg/actuation administer into each nostril 2 sprays intranasal DAILY 16 grams 0RF fluticasone propionate 110 mcg/actuation 2 puffs inhalation BID 12 grams 0RF J45.30 - Mild persistent asthma, uncomplicated
[2025-01-24 16:20] VITALS: BP 131/79; PULSE 89; RESP 16; TEMP 36.8; O2SAT 95; BMI 22.9
--- OUTSIDE RECORDS SUMMARY | 2025-01-24 19:38 | XMS_ITS | Clinical Summary ---
Author Organization [facility] Address [address] [place] [address] Care Team Providers Care Print And Pattern Designer Name Role Phone Mony Moore DO Primary Care Provider [phone] Social History Tobacco Use Types Packs/Day Years [...] series) 09/15/1995 Mammogram/Breast Imaging 2016 COVID-19 Vaccine ( - 2024-2 6 season) 2024 Influenza (#1) 2024 Zoster (Shingrix) [...] patient's age to complete this topic Insurance [facility] (NETWORK/MH-OUT OF NETWORK) Care Teams Print And Pattern Designer Relationship Specialty Start Date End Date Mony Moore DO [facility], [address] [place] [id number] PCP - General Family Medicine 04/11/20
--- OUTSIDE RECORDS SUMMARY | 2025-01-24 19:38 | XMS_ITS | Clinical Summary ---
Author Organization [address] [facility] Address [address] [place] [address] Phone Care Team Providers Care Suction Operator Name Role Phone Physician, Pcp Unknown Primary [...] doses in 24 hours. 9 tablet 5 5 Active amitriptyline (ELAVIL) 25 mg tablet TOME 1 TABLETA POR VIA ORAL TODOS LOS LAMA AL ACOSTARSE 90 tablet 1 5 Active albuterol HFA (PROAIR HFA ; PROVENTIL HFA ; VENTOLIN HFA) 90 mcg/actuation inhaler Inhale 2 puffs by mouth if needed. 5 Active riboflavin (VITAMIN B2) 400 mg tablet Take 1 tablet (400 mg total) by mouth 1 (one) time each day. 30 tablet 5 5 Active magnesium oxide (MAG-OX) 400 mg magnesium tablet Take 1 tablet (400 mg total) by mouth 1 (one) time each day. 30 tablet 5 5 Active Encounters Date Type Department Care Team Description 01/22/2025 4:30 PM EDT Office Visit [facility] [address] [phone] Della Cardenas PA 11/05/2024 3:56 PM EDT - 11/05/2024 11:59 PM EDT Hospital Encounter [facility] MRI [address] [place] [address] Migraine without aura and without status migrainosus, not intractable Discharge Disposition: Home or Self Care from Last 3 Months Social History Tobacco [...] Pulse 92 01/22/2025 4:23 PM EDT Temperature 36.5 C (97.7 F) 10/22/2024 2:14 PM EDT Respiratory Rate - - Oxygen Saturation 98% 01/22/2025 4:23 PM EDT Inhaled Oxygen Concentration - - Weight 56.7 kg (125 lb) 01/22/2025 4:23 PM EDT Height 162.6 cm (5' 4 ) 10/22/2024 2:14 PM EDT Body Mass Index 21.46 10/22/2024 2:14 PM EDT Plan of Treatment Upcoming Encounters Date Type Department Care Team (Late st Contact Info) Description 07/22/2025 4:00 PM EDT Office Visit [facility] [address] [phone] Olga Adamson MD [address] [place] [address] Health Maintenance Due Date Last Done Comments Breast Cancer Screening 1976 Colorectal Cancer Screening: Colonoscopy 1976 DTaP,Tdap,and Td Vaccines (1 - Tdap) 09/15/1995 Hepatitis B Vaccines (1 of 3 - 19+ 3-dose series) 09/15/1995 Cervical Cancer Screening: P ap Smear 1997 Depression Screening 04/11/2024 HIV Screening 08/02/2024 Hepatitis C Screening 08/02/2024 Social Influencers of Health Screening 08/02/2024 COVID-19 Vaccine (1 - 2023-2 5 season) 2024 Influenza Vaccine [...] Signed Date: 11/06/2024 17:56 ET Workstation ID: [id number] Transcribed By: Self Edit Transcribed Date: 11/06/2024 [...] Signed Date: 11/06/2024 17:56 ET Workstation ID: [id number] Transcribed By: Self Edit Transcribed Date: 11/06/2024 17:53 ET Olga Adamson MD IMG MRI PROCEDURES Final Result from Last 3 Months Insurance [employer] Care Teams Suction Operator Relationship Specialty Start Date End Date Physician, Pcp Unknown PCP - General 10/22/24
== END 2025-01-24 16:44 | disposition home or self-care (01) ==
LOC: HO.HMCFMS 16:11
PROVIDERS: Visit Provider Student in an Organized Health Care Education/Training Program
DX: J45.30 Mild persistent asthma, uncomplicated (principal); J06.9 Acute upper respiratory infection, unspecified; J40 Bronchitis, not specified as acute or chronic; N92.6 Irregular menstruation, unspecified

== ENCOUNTER 2025-02-19 09:06 | Outpatient (REF) | payer OTHER, SELFPAY ==
--- OUTSIDE RECORDS SUMMARY | 2025-02-19 09:48 | XMS_ITS | Clinical Summary ---
Author Organization [facility] Address [address] [place] [address] Care Team Providers Care Jig Borer Name Role Phone Mony Moore DO Primary Care Provider [phone] Social History Tobacco Use Types Packs/Day Years [...] patient's age to complete this topic Insurance [facility] (NETWORK/MH-OUT OF NETWORK) Care Teams Jig Borer Relationship Specialty Start Date End Date Mony Moore DO [facility], [address] [place] [id number] PCP - General Family Medicine 04/11/20
--- OUTSIDE RECORDS SUMMARY | 2025-02-19 09:48 | XMS_ITS | Clinical Summary ---
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 Name Role Phone Physician, Pcp Unknown [...] Description 01/22/2025 4:30 PM EDT Office Visit [facility] [address] [id number] Della Cardenas PA Migraine without aura and without status migrainosus, not intractable (Primary Dx) from Last 3 Months Social History Tobacco [...] Description 07/22/2025 4:00 PM EDT Office Visit [facility] [address] [id number] Olga Adamson MD [address] [place] [address] Health Maintenance Due Date Last Done Comments [...] patient's age to complete this topic Insurance [employer] Care Teams Branding Machine Operator Relationship Specialty Start Date End Date Physician, Pcp Unknown PCP - General 10/22/24
[2025-02-19 12:56] LABS: MANUAL DIFF FLAG NO
[2025-02-19 13:05] LABS: Hematocrit 38.5 % (37.0-47.0); Hemoglobin 12.4 g/dl (12.0-16.0); Imm Gran Abs Auto 0.01 X10*3/uL (0.00-0.03); Imm Gran Pct Auto 0.2 % (0.0-0.4); Lymphocytes Absolute Auto 2.0 X10*3/uL (1.2-4.9); Mean Corpuscular HGB Conc 32.2 g/dl (31.0-35.0); Mean Corpuscular Hemoglobin 30.8 pg (27.0-33.0); Mean Corpuscular Volume 95.5 fL (80.0-98.0); NRBC Abs Auto 0.000 X10*3/uL (0.0-0.012); NRBC Pct Auto 0.0 /100WBC (0.0-0.2); Platelet Count 387 X10*3/uL (160-400); Red Blood Count 4.03 X10*6/uL (4.20-5.50); White Blood Count 5.4 X10*3/uL (4.8-10.8)
[2025-02-19 13:26] LABS: Alanine Aminotransferase 19 U/L (0-31); Albumin Level 4.2 g/dL (3.5-5.0); Alkaline Phosphatase 87 U/L (39-117); Anion Gap 11 (12-20); Aspartate Amino Transferase 30 U/L (5-31); Blood Urea Nitrogen 9 mg/dL (9-16); Calcium 9.2 mg/dL (8.4-10.2); Carbon Dioxide 27 mmol/L (22-29); Chloride 104 mmol/L (96-108); Cholesterol 191 mg/dL (<200); Estimated Glomerular Filt Rate > 60; HDL Cholesterol 43 mg/dL (>40); Potassium 3.8 mmol/L (3.3-5.1); Sodium 138 mmol/L (135-145); Total Protein 7.1 g/dL (6.5-8.0); Triglycerides 167 mg/dL (<150)
[2025-02-19 13:43] LABS: Appearance Urine Clear; Glucose Urine UA Negative (Negative); PH 8.5 (5.0-9.0); Specific Gravity - Urine <= 1.005 (1.005-1.025); UMIC TRIGGER UACC YES
[2025-02-19 14:05] LABS: Folate 12.4 ng/mL (> or = 4.0); Vitamin B12 644 pg/mL (200-900)
[2025-02-19 14:14] LABS: UACC Culture Trigger YES
[2025-02-19 14:28] LABS: CT PCR Urine NOT DETECTED (Not Detect.); NG PCR Urine NOT DETECTED (Not Detect.)
[2025-02-20 04:35] LABS: HBS Num1 1.43 mIU/mL (0-7.99); HBsAGNum1 0.36 S/CO (0.00-0.99); HIV Num 1 0.04 S/CO (0.00-0.99); Hepatitis B Surface Antigen Negative (Negative); ~HepC Num1 0.07 S/CO (0.00-0.79); ~Hepatitis B Surface Antibody NONREACTIVE (Nonreactive); ~Hepatitis C Antibody Nonreactive (Nonreactive)
[2025-02-23 13:04] LABS: VITAMIN D (1,25 OH) D3 45 pg/mL; Vit D (1,25-Dihydroxy) Total 45 pg/mL (18-72); Vitamin D (1,25 OH) D2 <8 pg/mL
== END 2025-02-19 09:07 | disposition home or self-care (01) ==
LOC: HO.HKASLDS 09:06
PROVIDERS: PCP Student in an Organized Health Care Education/Training Program; Visit Provider Student in an Organized Health Care Education/Training Program
DX: H69.83 Other specified disorders of Eustachian tube, bilateral (principal); R05.2 Subacute cough; Z13.1 Encounter for screening for diabetes mellitus; Z13.6 Encounter for screening for cardiovascular disorders; Z20.2 Contact with and (suspected) exposure to infections with a predominantly sexual mode of transmission; Z11.4 Encounter for screening for human immunodeficiency virus [HIV]
CPT/HCPCS: 80053; 80061; 81001; 81003; 82607; 82652; 82746; 83036; 85025; 86631; 86632; 86706; 86803; 87086; 87340; 87389; 87491; 87591

== ENCOUNTER 2025-02-19 09:33 | Outpatient (AMB) | payer OTHER, SELFPAY ==
--- OUTSIDE RECORDS SUMMARY | 2004-01-23 19:00 | XMS_ITS | Continuity of Care Document ---
Author Organization [facility] Address [address] [address],[address] [place] [address] Phone Care Team Providers Care Business Continuity Strategy Director Name Role Phone Bebe Pires MD Unavailable Unavailable Medications Medication Instructions Dosage Effective Dates (start - stop) Status Comments clotrimazole 1 % Vaginal Cream 1 APPLICATORFUL PV QD X 7 DAYS - Active Advance Directives Directive Yes / No Effective Date File Name No Information Encounters Encounter Description Practice Location Reason(s) For Visit Diagnoses Date Provider Providers Copied on Encounter zo [facility], [address] [place] [address],[address] [address], [place], [place], [id number], tel:[phone] Converted Locations No Information 4 Lexis Spence. [address] [place] [address], [id number] , [place]. tel:[phone] [facility], [address] [place] [address],Suite [facility], [place], [place], [id number], tel:[phone] [facility] Vaginitis and vulvovaginitis , unspecified 4 Z-Convert ed Provider. . [facility], [address] [place] [address],Suite [facility], [place], [place], [id number], [place] tel:[phone] [facility] Goiter, specified as simpleRoutine general medical examination at a health care facility 4 DOttavio Bebe. [address] [place] [id number] , [place]. tel:[phone] Family History Family Member Type Diagnosis Age At Onset No Information Payers Payer name Insurance type Covered libertarian ID Authoriza tion(s) No Information Social History Type Description Quantity Date Captured Comments Sex Female Smoking Status No Information Chief Complaint And Reason For Visit No Information Reason For Referral Reason For Referral No Information History Of Present Illness Encounter Date Complaint History Of Prese nt Illness No Information Functional Status Date Functional Assessmen t No Information Instructions Date Instruction Additional Infor mation No Information Assessments Type Assessment Date No Information Patient Care Teams Name Effective Dates (start - stop) Status Members No Information
--- NOTE | 2025-02-19 09:36 | AM.OFFWIN_ITS ---
Intake Vital Signs 02/19/25 09:41 Height 5 ft 3.39 in Weight 129 lb BMI 22.6 BP 119/80 Blood Pressure Location Lt brachial Position Sitting Pulse 81 Pulse Source Pulse Oximeter Temp 97.9 F Temp Source Oral Pulse Oximetry (%) 98 Oxygen Delivery Method Room Air Intake Visit Reasons: EP- Bilateral Ear Pain Intake Note: EP complains of impairment of hearing, itching and mild pain in both ears while more predominant in her right ear. Patient Tobacco Use Status: Never used Tobacco Allergies ibuprofen Allergy (Verified 02/19/25 09:49) Angioedema Medication List - Last Reconciled 02/19/25 by Samira May MD albuterol sulfate 90 mcg/actuation 2 inhalations inhalation Q4-6H PRN cetirizine 10 mg PO DAILY PRN fluticasone propionate 50 mcg/actuation 2 sprays intranasal DAILY fluticasone propionate 110 mcg/actuation 2 puffs inhalation BID Do you need a note to return to daycare/school/sports/work: No HPI HPI Comments History of Present Illness Details History of Present Illness The patient is a 49-year-old female presenting for evaluation of persistent cough and ear fullness. - The patient reports being sick for gre ater than one month. - She was seen in the emergency room at the end of December and received a Zpack and a steroid, after which her symptoms improved. - Approximately five days later, her sym ptoms returned, and she began coughing again, primarily at the end of the day. - She reports that the cough is worse wh en she is lying down flat at night. - She was prescribed flonase and albuter ol inhaler as needed by her PCP. Reports taking flonase intermittently - She reports intermittent shortness of breath, which is relieved by the inhaler. - She has a history of childhood asthma but notes this is only the second time she has needed an inhaler as an adult. - She also reports occasional rhinorrhea , resolved sore throat from two weeks ago, and resolved sinus pressure from two weeks ago. - The patient denies fever, N/V/D, or ch est pain. - For the past week, the patient has exp erienced a sensation of her right ear being stuck, resulting in muffled hearing. - She had a similar feeling in her left ear three days ago, but it has since resolved. - She denies any ear pain. - Patient also reports occasionally taki devorah Isidroa. She was prescribed Zyrtec by her PCP as well Review of Systems Constitutional: Negative for fevers, chills HENT: Reports right-sided aural fullness and decreased hearing. Denies otalgia. Reports occasional rhinorrhea. Denies current sinus pain or sore throat, but had both two weeks ago. Respiratory: Reports cough and intermittnet shortness of breath. Negative for wheezing Cardiac: Negative for chest pain Gastrointestinal: Negative for nausea, vomiting, diarrhea, Physical Exam General Appearance: Normal appearance, well developed. No acute distress ENT: External ears and ear canals normal. Middle ear effusions noted bilaterally. TM without erythema or bulging. Mild post nasal drip noted. No congestion present. No postnasal drip. Oropharynx clear without erythema or exudate. Head: Normocephalic, atraumatic Pulmonary: No respiratory distress. Clear to auscultation bilaterally. Speaking in full sentences Cardiac: Regular rate and rhythm. No murmurs. Musculoskeletal: Moving all extremities spontaneously and against gravity Mental Status: Alert and Oriented x 3 Psychiatric: Normal mood. Normal affect. [facility] Medical History (Updated 01/24/25 @ 16:40 by Rey Singh MD) Mild persistent asthma Family History (Updated 01/24/25 @ 16:24 by Jaquan Tiwari MA) Father Diabetes High blood pressure Mother High blood pressure Social History Housing: House Patient Tobacco Use Status: Never used Tobacco service: No Current occupational status: employed Cognitive needs: No Hearing needs: No Vision needs: Yes (rx glasses) Physical Exam Vital Signs: Last Vital Signs Temp 97.9 F 02/19/25 09:41 Pulse 81 02/19/25 09:41 BP 119/80 02/19/25 09:41 Pulse Ox 98 02/19/25 09:41 Oxygen Delivery Method Room Air 02/19/25 09:41 BMI result Body Mass Index 22.6 Assessment & Plan Assessment & Plan (1) Eustachian tube dysfunction: Code(s): H69.80 - Other specified disorders of Eustachian tube, unspecified ear Qualifiers: Laterality: bilateral Qualified Code(s): H69.83 - Other specified disorders of Eustachian tube, bilateral (2) Cough: Code(s): R05.9 - Cough, unspecified Qualifiers: Cough type: subacute Qualified Code(s): R05.2 - Subacute cough Plan - The patient's symptoms of right-sided aural fullness and persistent cough appear secondary to an upper respiratory illness - Low suspicion for pneumonia given clear lungs to auscultation, afebrile, and patient saturating well--no indication for CXR. - Advised the patient to use Flonase nasal spray every day to help with eustachian tube dysfunction; it was explained that it takes several days of consistent use to be effective. Continue daily Candida or zyrtec to help decrease drainage and post nasal drip likely contributing to cough. For symptomatic relief of cough, Cepacol lozenges were recommended. - The patient was advised to return for re-evaluation if she develops new fevers, worsening cough, or shortness of breath, at which point a chest X-ray may be considered. Patient was informed and verbally consented to the use of an ambient scribe for clinic note documentation during the visit. Patient Instructions: Get lots of rest. Maintain good clear fluid intake to stay well hydrated. Please practice frequent handwashing to prevent spread of germs. Please avoid exposure to tobacco smoke and/or polluted air. Recommend to continue using Flonase and Candida daily. Flonase may take a couple of days to take effect Cepacol lozenges can help with cough and throat irritation Albuterol inhaler as needed for shortness of breath or reactive cough You can use OTC cough and cold medication such as robitussin to help with symptoms You may also try a saline nasal spray or room humidification to help with congestion. If you develop worsening cough, chest pain, shortness of breath, fevers, or chills, please return to the walk in or follow up with PCP. Coding Level of Care Code Est Pt Level 3 (96290) Diagnoses Dysfunction of both eustachian tubes H69.83 Laterality: bilateral Subacute cough R05.2 Cough type: subacute
[2025-02-19 09:41] VITALS: BP 119/80; PULSE 81; TEMP 36.6; O2SAT 98; BMI 22.6
== END 2025-02-19 10:10 | disposition home or self-care (01) ==
LOC: HO.HMCWIS 09:33
PROVIDERS: PCP Student in an Organized Health Care Education/Training Program; Visit Provider Family Medicine
DX: H69.83 Other specified disorders of Eustachian tube, bilateral (principal); R05.2 Subacute cough
CPT/HCPCS: 99213